=== PATIENT | female | born 1935 | race Caucasian/White ===

== ENCOUNTER 2020-01-01 21:14 | Emergency (ER) | payer MEDICARE, OTHER ==
--- NOTE | 2020-01-01 22:22 | EDM.PDOC ---
ED HPI GENERAL MEDICAL PROBLEM - General Chief Complaint: Head Injury Stated Complaint: FELL Time Seen by Provider: 01/01/20 21:30 Source of Information: Reports: Patient History Limitations: Reports: No Limitations - History of Present Illness INITIAL COMMENTS - FREE TEXT/NARRATIVE: pt ere for evaluation after accidental fall , she tripped at her kitchen falling and injuring her head with kitchen counter has a scalp lac and right knee abrasion, denies LOC, or any HAS or any other neuro or CV or resp sx or concerns. pt is on Plavix and aspirin. head, right knee Pain Score (Numeric/FACES): 2 - Related Data Allergies Allergy/AdvReac Type Severity Reaction Status Date / Time Unable to Assess Allergy Unverified 12/21/17 00:28 Home Meds: Home Meds Clopidogrel [Plavix] 75 mg PO DAILY 12/21/17 [History] Ezetimibe 10 mg PO DAILY 12/21/17 [History] Furosemide 20 mg PO DAILY PRN 12/21/17 [History] Insulin Aspart [NovoLOG] 14 unit SQ WITHMEALSANDBED 12/21/17 [History] Insulin Detemir [Levemir Flextouch] 34 unit SQ BEDTIME 12/21/17 [History] Isosorbide Mononitrate [Imdur] 60 mg PO DAILY 12/21/17 [History] Losartan [Cozaar] 50 mg PO DAILY 12/21/17 [History] Metoprolol Succinate 50 mg PO BEDTIME 12/21/17 [History] Nitroglycerin 0.4 mg SL ASDIRECTED 12/21/17 [History] Ranitidine HCl [Ranitidine] 150 mg PO BID 12/21/17 [History] Sertraline [Zoloft] 1 tab PO DAILY 12/21/17 [History] metFORMIN HCl [Metformin HCl ER] 500 mg PO BID 12/21/17 [History] Past Medical History HEENT History: Reports: Impaired Vision Cardiovascular History: Reports: High Cholesterol, Hypertension, [place], Pacemaker Gastrointestinal History: Reports: G[employer]D [employer] WORK[employer] History: Reports: Neurological History: Reports: Concussion, Head Trauma Endocrine/Metabolic History: Reports: Diabetes, Type II - Past Surgical History Female Surgical History: Reports: Mastectomy Social & Family History - Family History Family Medical History: Noncontributory - Tobacco Use Smoking Status *Q: Never Smoker Second Hand Smoke Exposure: No - Caffeine Use Caffeine Use: Reports: Coffee Caffeine Use Comment: coffee twice a day - Recreational Drug Use Recreational Drug Use: No ED ROS GENERAL - Review of Systems Review Of Systems: See Below Constitutional: Reports: No Symptoms HEENT: Denies: Vertigo, Vision Change Respiratory: Reports: No Symptoms Cardiovascular: Reports: No Symptoms GI/Abdominal: Reports: No Symptoms : Reports: No Symptoms Musculoskeletal: Reports: No Symptoms Neurological: Reports: No Symptoms ED EXAM, HEAD INJURY - Physical Exam Exam: See Below Exam Limited By: No Limitations General Appearance: Alert, No Apparent Distress Head: Normocephalic, Other (there is a 5 cm scalp lac over the right paritial area , soft tissue swelling noted in that area. ) Eyes: Bilateral Eye: Normal Inspection Ears: Normal External Exam, Normal TMs Nose: Normal Inspection, Normal Mucousa Throat/Mouth: Normal Inspection, Normal Oropharynx Neck: Non-Tender, Full Range of Motion, Normal Inspection Respiratory: No Respiratory Distress, Lungs Clear, Normal Breath Sounds Cardiovascular: Normal Peripheral Pulses, Regular Rate, Rhythm, No Murmur GI/Abdominal Exam: Normal Bowel Sounds, Soft, Non-Tender Extremities: Normal Inspection, Normal Range of Motion, Other (small abrasion over the anterior side of right knee. ) Neurologic: jewelry sales II-XII nml As Tested, No Motor/Sensory Deficits, Oriented x 3 ED LACERATION/WOUND & MOO PROC - Laceration/Wound Repair Right Upper Posterior Side Head Lac/wound length in cm: 5 Appearance: Subcutaneous Distal NVT: Neuro & Vascular Intact, No Tendon Injury Skin Prep: Saline Saline irrigation (cc's): 200 Exploration/Debridement/Repair: Wound Explored, Minimal Debridement, No Foreign Material Found Closed with: Lali # of Sutures: 8 Tetanus Status Addressed: Yes (pt is current with tetanus.) Complications: No Course - Vital Signs Text/Narrative:: CT results were explained to pt. scalp lac was repaired and wound was dressed , pt is hemodynamically stable / alert and oriented. Ct shows subdural hematoma / Dr Nunez was consulted and was in acceptance of pt care. plan...transfer to [facility]. Last Recorded V/S: Last Vital Signs Temp 36.4 C 01/01/20 21:20 Pulse 59 L 01/01/20 21:20 Resp 14 01/01/20 21:20 BP 168/45 H 01/01/20 21:20 Pulse Ox 95 01/01/20 21:20 - Orders/Labs/Meds Orders: Active Orders 24 hr Category Date Time Status Head wo Cont [CT] Stat Exams 01/01/20 21:57 Taken Departure - Departure Time of Disposition: 22:48 Disposition: DC/Tfer to Other 70 Clinical Impression: Subdural hematoma - Discharge Information Referrals: Ashley Moore, [employer] [Primary Care Provider] - Forms: ED Department Discharge Sepsis Event Note (ED) - Evaluation Sepsis Screening Result: No Definite Risk - Focused Exam Vital Signs: Vital Signs Temp Pulse Resp BP Pulse Ox 01/01/20 21:20 36.4 C 59 L 14 168/45 H 95 - My Orders Last 24 Hours: My Active Orders 01/01/20 21:57 Head wo Cont [CT] Stat - Assessment/Plan Last 24 Hours: My Active Orders 01/01/20 21:57 Head wo Cont [CT] Stat
== END 2020-01-01 23:45 | disposition other institution (70) ==
LOC: FB.ED 21:14
DX: S06.5X9A Traumatic subdural hemorrhage with loss of consciousness of unspecified duration, initial encounter (principal); E11.9 Type 2 diabetes mellitus without complications; I10 Essential (primary) hypertension; I25.2 Old myocardial infarction; K21.9 Gastro-esophageal reflux disease without esophagitis; Z79.4 Long term (current) use of insulin; Z79.02 Long term (current) use of antithrombotics/antiplatelets; Z79.899 Other long term (current) drug therapy; W01.0XXA Fall on same level from slipping, tripping and stumbling without subsequent striking against object, initial encounter
CPT/HCPCS: 12002; 70450; 99285-25

== ENCOUNTER 2022-05-18 14:54 | Inpatient (IN) | payer MEDICARE, OTHER ==
[2022-05-18] MEDS ORDERED: Acetaminophen/HYDROcodone 325-5 MG Tab PO ONE (15:29)
[2022-05-18 16:18] LABS: ESTIMATED GFR 33 mL/min (>60)
[2022-05-18] MEDS ORDERED: oxyCODONE 5 MG Tab PO PRN (17:27)
[2022-05-18] MEDS ORDERED: Polyethylene Glycol 3350 Powder 17 GM Packet PO PRN (17:27)
[2022-05-18] MEDS ORDERED: Nitroglycerin 0.4 MG Tab.SL SL PRN (18:04)
[2022-05-18] MEDS ORDERED: Insulin Lispro 100 Unit/ML 3 ML KwikPen SUBCUT ONE ×2 (18:44→21:16)
[2022-05-18] MEDS: Ibuprofen 200 MG Tab PO SCH (18:49)
[2022-05-18] MEDS: Acetaminophen 500 MG Tab PO SCH (18:50)
[2022-05-18] MEDS ORDERED: Enoxaparin 30 MG/0.3 ML Syringe SUBCUT SCH (21:00)
[2022-05-18] MEDS ORDERED: Insulin Glargine,Human Rec. Analog 100 Units/ML 3 ML Pen SUBCUT SCH (21:00)
[2022-05-18] MEDS ORDERED: Insulin Glargine,Human Rec. Analog 100 Units/ML 3 ML Pen SUBCUT ONE (21:16)
[2022-05-18] MEDS: Losartan 50 MG Tab PO SCH (21:28)
[2022-05-19] MEDS: Ibuprofen 200 MG Tab PO SCH ×3 (00:03→11:58)
[2022-05-19] MEDS: Acetaminophen 500 MG Tab PO SCH ×4 (00:06→18:06)
[2022-05-19] MEDS: Levothyroxine 100 MCG Tab PO SCH (05:25)
[2022-05-19 06:58] LABS: ESTIMATED GFR 33 mL/min (>60)
[2022-05-19] MEDS ORDERED: Furosemide 20 MG Tab PO SCH (08:00)
[2022-05-19] MEDS ORDERED: Insulin Lispro 100 Unit/ML 3 ML KwikPen SUBCUT SCH (08:00)
[2022-05-19] MEDS ORDERED: Sertraline 100 MG Tab PO SCH (09:00)
[2022-05-19] MEDS ORDERED: Mirabegron 25 MG Tab Extended Release PO SCH (09:00)
[2022-05-19] MEDS: Ezetimibe 10 MG Tab PO SCH (09:01)
[2022-05-19] MEDS: amLODIPine 10 MG Tab PO SCH (09:01)
[2022-05-19] MEDS: Aspirin 81 MG Tab.EC PO SCH (09:02)
[2022-05-19] MEDS: Carvedilol 25 MG Tab PO SCH ×2 (09:02→18:09)
[2022-05-19] MEDS: Furosemide 20 MG Tab PO SCH (09:02)
[2022-05-19] MEDS: Sertraline 100 MG Tab PO SCH ×2 (09:02→20:19)
[2022-05-19] MEDS: Isosorbide Mononitrate 60 MG Tab.ER PO SCH (09:02)
[2022-05-19] MEDS: Loratadine 10 MG Tab PO SCH (09:02)
[2022-05-19] MEDS: Losartan 50 MG Tab PO SCH ×2 (09:03→20:16)
[2022-05-19] MEDS: Pantoprazole 40 MG Tab.CR PO SCH (09:04)
[2022-05-19] MEDS: Insulin Lispro 100 Unit/ML 3 ML KwikPen SUBCUT SCH ×3 (09:05→18:09)
[2022-05-19] MEDS: Dexamethasone 4 MG Tab PO SCH (13:51)
[2022-05-19] MEDS: Sennosides 8.6 MG Tab PO SCH (18:09)
[2022-05-19] MEDS: Insulin Glargine,Human Rec. Analog 100 Units/ML 3 ML Pen SUBCUT SCH (20:17)
[2022-05-19] MEDS: Mirabegron 25 MG Tab Extended Release PO SCH (20:18)
[2022-05-20] MEDS: Acetaminophen 500 MG Tab PO SCH ×4 (00:23→17:29)
[2022-05-20] MEDS ORDERED: Levothyroxine 150 MCG Tab PO SCH (06:00)
[2022-05-20] MEDS: Pantoprazole 40 MG Tab.CR PO SCH (06:30)
[2022-05-20] MEDS: Insulin Lispro 100 Unit/ML 3 ML KwikPen SUBCUT SCH ×3 (09:09→17:28)
[2022-05-20] MEDS: Furosemide 20 MG Tab PO SCH (09:11)
[2022-05-20] MEDS: Dexamethasone 4 MG Tab PO SCH (09:11)
[2022-05-20] MEDS: Losartan 50 MG Tab PO SCH ×2 (09:12→21:04)
[2022-05-20] MEDS: Sertraline 100 MG Tab PO SCH ×2 (09:12→21:06)
[2022-05-20] MEDS: Carvedilol 25 MG Tab PO SCH ×2 (09:12→17:30)
[2022-05-20] MEDS: Aspirin 81 MG Tab.EC PO SCH (09:17)
[2022-05-20] MEDS: amLODIPine 10 MG Tab PO SCH (09:18)
[2022-05-20] MEDS: Loratadine 10 MG Tab PO SCH (09:18)
[2022-05-20] MEDS: Ezetimibe 10 MG Tab PO SCH (09:18)
[2022-05-20] MEDS: Isosorbide Mononitrate 60 MG Tab.ER PO SCH (09:18)
[2022-05-20] MEDS: Sennosides 8.6 MG Tab PO SCH (17:30)
[2022-05-20] MEDS: Insulin Glargine,Human Rec. Analog 100 Units/ML 3 ML Pen SUBCUT SCH (21:05)
[2022-05-20] MEDS: Mirabegron 25 MG Tab Extended Release PO SCH (21:06)
[2022-05-21] MEDS: Acetaminophen 500 MG Tab PO SCH ×5 (00:29→23:28)
[2022-05-21] MEDS: Levothyroxine 100 MCG Tab PO SCH (06:08)
[2022-05-21] MEDS: Pantoprazole 40 MG Tab.CR PO SCH (06:37)
[2022-05-21] MEDS: Carvedilol 25 MG Tab PO SCH ×2 (07:57→17:20)
[2022-05-21] MEDS: Insulin Lispro 100 Unit/ML 3 ML KwikPen SUBCUT SCH ×3 (07:58→17:21)
[2022-05-21] MEDS: Ezetimibe 10 MG Tab PO SCH (07:59)
[2022-05-21] MEDS: Isosorbide Mononitrate 60 MG Tab.ER PO SCH (07:59)
[2022-05-21] MEDS: Furosemide 20 MG Tab PO SCH (07:59)
[2022-05-21] MEDS: amLODIPine 10 MG Tab PO SCH (08:00)
[2022-05-21] MEDS: Sertraline 100 MG Tab PO SCH ×2 (08:00→21:13)
[2022-05-21] MEDS: Losartan 50 MG Tab PO SCH ×2 (08:00→21:13)
[2022-05-21] MEDS: Aspirin 81 MG Tab.EC PO SCH (08:00)
[2022-05-21] MEDS: Loratadine 10 MG Tab PO SCH (08:00)
[2022-05-21] MEDS ORDERED: hydrALAZINE 25 MG Tab PO PRN (10:24)
[2022-05-21] MEDS: PEG 400/Propylene Glycol Ophth Soln 15 ML Bottle EYEBOTH PRN (11:37)
[2022-05-21] MEDS: Sennosides 8.6 MG Tab PO SCH (17:21)
[2022-05-21] MEDS: Mirabegron 25 MG Tab Extended Release PO SCH (21:13)
[2022-05-21] MEDS: Insulin Glargine,Human Rec. Analog 100 Units/ML 3 ML Pen SUBCUT SCH (21:14)
[2022-05-22] MEDS: Levothyroxine 100 MCG Tab PO SCH (06:28)
[2022-05-22] MEDS: Acetaminophen 500 MG Tab PO SCH ×3 (06:28→17:28)
[2022-05-22] MEDS: Pantoprazole 40 MG Tab.CR PO SCH (06:30)
[2022-05-22] MEDS: Isosorbide Mononitrate 60 MG Tab.ER PO SCH (08:07)
[2022-05-22] MEDS: Ezetimibe 10 MG Tab PO SCH (08:07)
[2022-05-22] MEDS: Loratadine 10 MG Tab PO SCH (08:07)
[2022-05-22] MEDS: Carvedilol 25 MG Tab PO SCH ×2 (08:08→17:27)
[2022-05-22] MEDS: amLODIPine 10 MG Tab PO SCH (08:08)
[2022-05-22] MEDS: Sertraline 100 MG Tab PO SCH ×2 (08:08→21:24)
[2022-05-22] MEDS: Furosemide 20 MG Tab PO SCH (08:08)
[2022-05-22] MEDS: Insulin Lispro 100 Unit/ML 3 ML KwikPen SUBCUT SCH ×3 (08:09→17:28)
[2022-05-22] MEDS: Aspirin 81 MG Tab.EC PO SCH (08:09)
[2022-05-22] MEDS: Losartan 50 MG Tab PO SCH ×2 (08:09→21:25)
[2022-05-22] MEDS: PEG 400/Propylene Glycol Ophth Soln 15 ML Bottle EYEBOTH PRN ×2 (11:12→21:24)
[2022-05-22] MEDS: Sennosides 8.6 MG Tab PO SCH (17:28)
[2022-05-22 17:31] VITALS: PULSE 60
[2022-05-22] MEDS: Mirabegron 25 MG Tab Extended Release PO SCH (21:24)
[2022-05-22] MEDS: Insulin Glargine,Human Rec. Analog 100 Units/ML 3 ML Pen SUBCUT SCH (21:26)
[2022-05-23] MEDS: Acetaminophen 500 MG Tab PO SCH ×2 (00:50→06:12)
[2022-05-23] MEDS: Levothyroxine 100 MCG Tab PO SCH (06:12)
[2022-05-23] MEDS: Pantoprazole 40 MG Tab.CR PO SCH (06:36)
[2022-05-23] MEDS: Insulin Lispro 100 Unit/ML 3 ML KwikPen SUBCUT SCH (09:03)
[2022-05-23] MEDS: Carvedilol 25 MG Tab PO SCH (09:07)
[2022-05-23] MEDS: Loratadine 10 MG Tab PO SCH (09:07)
[2022-05-23] MEDS: Losartan 50 MG Tab PO SCH (09:07)
[2022-05-23] MEDS: Furosemide 20 MG Tab PO SCH (09:08)
[2022-05-23] MEDS: Ezetimibe 10 MG Tab PO SCH (09:08)
[2022-05-23] MEDS: Isosorbide Mononitrate 60 MG Tab.ER PO SCH (09:08)
[2022-05-23] MEDS: Aspirin 81 MG Tab.EC PO SCH (09:08)
[2022-05-23] MEDS: amLODIPine 10 MG Tab PO SCH (09:08)
[2022-05-23] MEDS: Sertraline 100 MG Tab PO SCH (09:08)
[2022-05-23 09:09] VITALS: BP 149/60
== END 2022-05-23 10:15 | DRG 563 ==
LOC: FB.ED 14:54 → FB.MS 16:22
PROVIDERS: ADMIT Family Medicine; ATTEND Family Medicine
DX: S42.354A Nondisplaced comminuted fracture of shaft of humerus, right arm, initial encounter for closed fracture (principal); I25.10 Atherosclerotic heart disease of native coronary artery without angina pectoris; G89.11 Acute pain due to trauma; I50.9 Heart failure, unspecified; I11.0 Hypertensive heart disease with heart failure; R53.1 Weakness; E11.9 Type 2 diabetes mellitus without complications; H54.7 Unspecified visual loss; E78.00 Pure hypercholesterolemia, unspecified; K21.9 Gastro-esophageal reflux disease without esophagitis; N39.46 Mixed incontinence; I10 Essential (primary) hypertension; W19.XXXA Unspecified fall, initial encounter; E66.01 Morbid (severe) obesity due to excess calories; I65.21 Occlusion and stenosis of right carotid artery; Z68.36 Body mass index [BMI] 36.0-36.9, adult; Z95.5 Presence of coronary angioplasty implant and graft; Z95.1 Presence of aortocoronary bypass graft; Z88.8 Allergy status to other drugs, medicaments and biological substances; Z88.2 Allergy status to sulfonamides; Z90.10 Acquired absence of unspecified breast and nipple; Z79.4 Long term (current) use of insulin; Z79.02 Long term (current) use of antithrombotics/antiplatelets; Z79.899 Other long term (current) drug therapy; Z95.0 Presence of cardiac pacemaker
CPT/HCPCS: 36415; 80048; 85025; 97110-GO; 97161-GP; 97165-GO; 97760-GO; 99222; 99232; 99239; 99284; A9270-GY; J1650; J1815; J1815-GY; J8540

== ENCOUNTER 2023-01-31 12:59 | Emergency (ER) | payer MEDICARE, OTHER ==
[2023-01-31] MEDS ORDERED: Sodium Chloride 0.9% 10 ML Syringe FLUSH PRN (13:05)
[2023-01-31] MEDS ORDERED: Labetalol 20 MG/4 ML Syringe IVPUSH ONE (13:20)
[2023-01-31 13:29] LABS: BASOPHILS PERCENT AUTO 0.5 % (0.2-1.5); EOSINOPHILS ABSOLUTE AUTO 0.2 x10-3/uL (0.0-0.8); EOSINOPHILS PERCENT AUTO 2.4 % (0.6-8.1); HEMATOCRIT 42.6 % (34.2-48.2); HEMOGLOBIN 14.2 g/dL (11.4-15.5); LYMPHOCYTES PERCENT AUTO 37.8 % (18.4-52.1); MEAN CORPUSCULAR HEMOGLOBIN 29.5 pg (23.9-33.9); MEAN CORPUSCULAR HGB CONC 33.3 g/dL (31.9-34.8); MEAN CORPUSCULAR VOLUME 88.6 fL (76.7-100.5); MEAN PLATELET VOLUME 8.2 fL (7.1-12.4); MONOCYTES ABSOLUTE AUTO 0.7 x10-3/uL (0.3-1.0); MONOCYTES PERCENT AUTO 8.9 % (4.4-15.7); NEUTROPHILS PERCENT AUTO 50.4 % (30.8-76.2); PLATELET COUNT,PLT 229 x10(3)uL (151-488); RED BLOOD CELL COUNT 4.81 x10(6)uL (3.60-5.20)
[2023-01-31 13:39] LABS: ALANINE AMINOTRANSFERASE,ALT 15 U/L (12-36); ALBUMIN 3.9 g/dL (2.9-4.5); ALKALINE PHOSPHATASE 138 IU/L (56-112); ASPARTATE AMNIOTRANSFERASE,AST 9 IU/L (5-25); BILIRUBIN TOTAL 0.5 mg/dL (0.1-1.3); BLOOD UREA NITROGEN,BUN 33 mg/dL (7-18); BUN/CREATININE RATIO 18.3 (9-20); CALCIUM 10.8 mg/dL (8.6-10.2); CARBON DIOXIDE,CO2 27 mmol/L (21-32); CHLORIDE,CL 97 mmol/L (100-110); CREATININE 1.8 mg/dL (0.55-1.02); ESTIMATED GFR 27 mL/min (>60); POTASSIUM,K 5.1 mmol/L (3.5-5.3); PROTEIN TOTAL,TP 7.8 g/dL (6.0-8.0); SODIUM,NA 133 mmol/L (135-145)
[2023-01-31 13:42] LABS: GLUCOSE RANDOM 513 mg/dL (80-116); INR 1.07 (1.00-1.24)
[2023-01-31 13:44] LABS: PTT,PARTIAL THROMBOPLSTIN TIME 24.8 SECONDS (24.4-33.2); TROPONIN I 43.1 pg/mL (4.0-60.3)
[2023-01-31 13:56] LABS: BILIRUBIN,URINE NEGATIVE (NEGATIVE); GLUCOSE,URINE >1000 mg/dL (NORMAL); KETONES,URINE 15 mg/dL (NEGATIVE); LEUKOCYTE ESTERASE,URINE NEGATIVE (NEGATIVE); NITRITE,URINE NEGATIVE (NEGATIVE); OCCULT BLOOD,URINE NEGATIVE (NEGATIVE); PROTEIN,URINE NEGATIVE (NEGATIVE); UROBILINOGEN,URINE NORMAL (NEGATIVE)
[2023-01-31] MEDS ORDERED: Insulin Lispro 100 Unit/ML 3 ML KwikPen SUBCUT STA (13:57)
[2023-01-31] MEDS ORDERED: Glucagon,Human Recombinant 1 MG Vial IM PRN (13:57)
[2023-01-31] MEDS ORDERED: 50% Dextrose in Water 50 ML Syringe IVPUSH PRN (13:57)
[2023-01-31 13:58] LABS: APPEARANCE,URINE CLEAR (CLEAR); BACTERIA,URINE FEW (NS); COLOR,URINE YELLOW (YELLOW); RBC,URINE 0-5 (0-5); SQUAMOUS EPITHELIAL CELLS,UR FEW (NS,R,O); WBC,URINE 0-5 (0-5)
[2023-01-31] MEDS ORDERED: Insulin Lispro 100 Unit/ML 3 ML KwikPen SUBCUT ONE (14:04)
[2023-01-31] MEDS ORDERED: hydrALAZINE 20 MG/ML SDV IVPUSH ONE (14:12)
[2023-01-31] MEDS ORDERED: cloNIDine 0.1 MG Tab PO ONE (16:21)
== END 2023-01-31 17:04 | disposition home or self-care (01) ==
LOC: FB.ED 12:59
DX: I16.9 Hypertensive crisis, unspecified (principal); E11.65 Type 2 diabetes mellitus with hyperglycemia; I11.0 Hypertensive heart disease with heart failure; I50.9 Heart failure, unspecified; E03.9 Hypothyroidism, unspecified; I25.2 Old myocardial infarction; K21.9 Gastro-esophageal reflux disease without esophagitis; Z95.1 Presence of aortocoronary bypass graft; Z86.73 Personal history of transient ischemic attack (TIA), and cerebral infarction without residual deficits; Z88.2 Allergy status to sulfonamides; Z88.8 Allergy status to other drugs, medicaments and biological substances; Z79.899 Other long term (current) drug therapy; Z79.4 Long term (current) use of insulin; Z79.82 Long term (current) use of aspirin
CPT/HCPCS: 36415; 70450; 71045; 80053; 81001; 83880; 84484; 85025; 85610; 85730; 93005; 96374; 96375; 99285; A9270; J0360; J1815; J3490